=== PATIENT | female | born 1975 | race Caucasian/White ===

== ENCOUNTER 2023-07-17 08:50 | Day surgery (SDC) | payer BC, SELFPAY ==
[2023-07-17 09:37] VITALS: BP 150/87; PULSE 72; RESP 18; TEMP 36.4; O2SAT 99; BMI 38.2
[2023-07-17] MEDS: BUPIVACAINE 0.25% 10ML INJ 25 MG IJ (10:17)
[2023-07-17 10:18] VITALS: BP 184/100; PULSE 69; RESP 18; O2SAT 98
[2023-07-17] MEDS: methylPREDNISolone ACETATE 80MG/ML VIAL 80 MG (10:18)
[2023-07-17] MEDS: LIDOCAINE 1% 5ML PF VIAL 5 ML (10:18)
[2023-07-17 10:19] VITALS: BP 184/100; PULSE 70; RESP 18; O2SAT 98
--- NOTE | 2023-07-17 10:20 | P.PCN_ITS ---
Procedure Date: 07/17/23 Time: 10:20 Anesthesiologist:: Duke Fowler CRNA Complications:: None Pre-procedure Diagnosis:: Bilateral sacroiliitis Post-procedure Diagnosis:: Same. Indications for Procedure:: Patient is a very pleasant 48-year-old female comes our clinic today for bilateral sacroiliac joint injections. She has extreme point tenderness upon examination over the bilateral sacroiliac joints. Patient has positive Reyna's test bilaterally. Patient reports difficulty transitioning from sitting to standing. She rates her pain 9/10. Procedure Details:: Procedure: Bilateral sacroiliac joint injections under fluoroscopy Informed consent was obtained and the risks and benefits of the procedure were explained to the patient.~ The patient was taken to the procedure room and noninvasive monitors were placed including a noninvasive blood pressure cuff and pulse oximeter.~ The patient was placed prone on the procedure table. Both hips were cleansed using Betadine as a cleansing solution. C-arm fluoroscopy was used to view the right sacroiliac joint.~ The skin and subcutaneous tissues were anesthetized using lidocaine 1.5% and a 25-gauge needle.~ After this, a 22-gauge spinal needle was inserted under fluoroscopic guidance into the inferior aspect of the right sacroiliac joint.~ Omnipaque dye was injected and good spread was seen throughout the joint.~ After this, approximately 5 mL of bupivacaine, 0.25% and Depo-Medrol, 40 mg was incrementally injected into the right sacroiliac joint. We then moved to the left sacroiliac joint.~ The skin and subcutaneous tissues were anesthetized using lidocaine 1.5% and a 25-gauge needle.~ After this, a 22- gauge spinal needle was inserted under fluoroscopic guidance into the inferior aspect of the left sacroiliac joint.~ Omnipaque dye was injected and good spread was seen throughout the joint. After this, approximately 5 mL of bupivacaine, 0.25% and Depo-Medrol, 40 mg was incrementally injected into the left sacroiliac joint.~ The patient tolerated the procedure well with no complications. The patient was observed in the Pain Clinic and then was discharged home neurologically intact. Plan and Disposition:: Patient was discharged without incident.
[2023-07-17 10:30] VITALS: BP 138/75; PULSE 63; RESP 18; O2SAT 99
== END 2023-07-17 10:30 | disposition home or self-care (01) ==
PROVIDERS: PCP Family Medicine; Visit Provider Nurse Anesthetist, Certified Registered
DX: M46.1 Sacroiliitis, not elsewhere classified (principal)
CPT/HCPCS: 27096; G0260; J1040

== ENCOUNTER → 2023-08-02 10:35 | Outpatient (POV) | payer BC, SELFPAY ==
[2023-08-02 12:16] VITALS: BP 161/83; PULSE 70; RESP 18; O2SAT 98; BMI 34.1
--- NOTE | 2023-08-02 12:31 | EXP.PAIN.SOA ---
[facility] Pain Management SOAP Note Subjective:: Patient is a pleasant 48-year-old female who presents today for follow-up of bilateral SI injections on 07/17/2023. 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 Today she rates her pain a 5 out of 10. Patient denies any new trauma or injury. She does state that she did not have significant relief like she did with the initial injections that she had back in November. Patient states that it might have helped take the edge off however she continues to still have pain going down into her thighs and into both feet. She describes this as a pins and needle sensation with numbness and burning sensations. Patient has tried [id number] Tylenol and ibuprofen along with heat and ice and topicals with minimal relief. Patient did have the bilateral SI injections back in November of last year and states at that time that really did help. Patient does state that her current pain is interfering with her ability perform activities of daily living such as cooking and cleaning. She states that she is having to sleep on her back due to the pain on her sides and that this is affecting her overall. Patient states that she has tried Lyrica in the past and did not get good relief and that gabapentin caused some increased swelling. Patient is interested in anything we can help with. Her Joce has been reviewed and is appropriate. Review of Systems: General: No recent weight changes, no fever, no sleep disturbances Respiratory: No cough, no shortness of air, no recurring pulmonary infections Cardiovascular/peripheral vascular: No chest pain, no palpitations, no edema, no shortness of breath Gastrointestinal: No new onset incontinence, normal bowel movements reported Genitourinary: No new onset incontinence Musculoskeletal: Low back pain, bilateral leg pain Psychiatric: [Normal mood/affect] Neurological: [Denies weakness in extremities], [denies balance issues] Objective:: Physical Exam: General: Alert and oriented x3, no acute distress, pleasant and cooperative Lungs: Respirations even and unlabored, symmetrical chest expansion Eyes: PERRL Musculoskeletal: Flexion and extension of lumbar [spine] somewhat guarded secondary to pain Neurological: Speech clear, no gross sensory deficit Assessment:: Degenerative disc disease of lumbar spine with lumbar radiculopathy symptoms, bilateral sacroiliitis Plan:: Patient continues to experience significant pain in her low back and legs with limited range of motion of her lumbar spine. I have discussed with the patient that she may benefit from lumbar epidural steroid injection. Risk and benefits were explained to the patient and she would like to proceed forward with this plan of care. Patient is not on any blood thinners. I will also order the patient a compounded cream. We will reach out to [facility] and see if we get a copy of her prior MRI imaging. Patient will be scheduled for a lumbar epidural steroid injection L4-L5 under fluoroscopy. Patient has been instructed to contact the clinic with any concerns before the next appointment. Dr. Jaramillo has reviewed this note and agrees with this plan of care. This note was dictated using voice recognition software and make contain errors or omissions. [facility] Disclaimer: The information contained in this section may have been updated after the patient was seen, as this information can be updated by other users. Medical History Depression HLD (hyperlipidemia) HTN (hypertension) Migraine Social History Smoking Status: Unknown if ever smoked alcohol intake: never current occupational status: other Travel in the last 8 weeks: None
== END ==
LOC: SC.PAIN 10:35
PROVIDERS: PCP Family Medicine; Visit Provider Nurse Practitioner Family
DX: M51.16 Intervertebral disc disorders with radiculopathy, lumbar region (principal); M46.1 Sacroiliitis, not elsewhere classified
CPT/HCPCS: 99212; G0463